=== PATIENT | male | born 1990 ===

== ENCOUNTER 2017-09-08 03:21 | Emergency (ER) | payer OTHER ==
[2017-09-08 03:37] VITALS: BP 108/73; PULSE 96; RESP 18; TEMP 97.7; O2SAT 97
[2017-09-08] MEDS ORDERED: Tetanus/Diphtheria Toxoids 0.5 ml Syringe IM ONE ×2 (03:54→04:06)
--- NOTE | 2017-09-08 03:58 | C.PDOC ---
History Of Present Illness 27 year old male presents to the ED for evaluation of a laceration sustained while at work today. Patient reports that while he was cutting some cables he accidentally cut his left middle finger. Patient denies weakness, numbness. Time Seen by Provider: 09/08/17 03:41 Chief Complaint (Nursing): Abnormal Skin Integrity History Per: Patient History/Exam Limitations: no limitations Onset/Duration Of Symptoms: Hrs Current Symptoms Are (Timing): Still Present Location Of Injury: Left: Hand (3rd finger) Quality Of Symptoms: Painful Recent travel outside of the [place]: No Additional History Per: Patient Past Medical History Reviewed: Historical Data, Nursing Documentation, Vital Signs Vital Signs: Last Vital Signs Temp 97.7 F 09/08/17 03:27 Pulse 96 H 09/08/17 03:27 Resp 18 09/08/17 03:27 BP 108/73 09/08/17 03:27 Pulse Ox 97 09/08/17 04:05 - Medical History PMH: No Chronic Diseases Surgical History: No Surg Hx Family History: States: Unknown Family Hx - Social History Hx Alcohol Use: No Hx Substance Use: No - Immunization History Hx Tetanus Toxoid Vaccination: No ("not sure") Hx Influenza Vaccination: Yes Hx Pneumococcal Vaccination: No Review Of Systems Musculoskeletal: Positive for: Hand Pain Skin: Positive for: Other (laceration) Neurological: Negative for: Weakness, Numbness Physical Exam - Physical Exam Appears: Non-toxic, No Acute Distress Skin: Normal Color, Warm, Dry Head: Atraumatic, Normacephalic Eye(s): bilateral: Normal Inspection Extremity: Normal ROM, No Tenderness, Capillary Refill (< 2 seconds), No Swelling, Other (0.5 superficial laceration to left 3rd finger, no active bleeding) Extremity: Bilateral: Normal Color And Temperature Pulses: Left Radial: Normal, Right Radial: Normal Neurological/Psych: Oriented x3, Normal Speech, Normal Motor, Normal Sensation Gait: Steady ED Course And Treatment O2 Sat by Pulse Oximetry: 97 (ON RA) Pulse Ox Interpretation: Normal Progress Note: tetanus immunization given. Laceration - Laceration Repair left 3rd finger Wound Length (In cm): 0.5 Description Of Wound: Linear Wound Cleansed With: Sterile Saline Wound Examination: Irrigated With Saline, No FB With Wound Exploration Wound Closure: Steri Strips (X2), Skin Glue Wound Complexity: Simple Disposition Counseled Patient/Family Regarding: Diagnosis, Need For Followup - Disposition Referrals: Rebecca Noble MD [Medical Doctor] - Disposition: HOME/ ROUTINE Disposition Time: 03:56 Condition: STABLE Additional Instructions: Please follow up with PMD in 2 days for wound check Keep wound dry and clean foe 2 days Return to ER if worse Instructions: Laceration Repair With Glue (DC) Forms: [employer] (Swiss) - Clinical Impression Clinical Impression: Finger laceration - PA / [employer] / Resident Statement MD/DO has reviewed & agrees with the documentation as recorded. - Scribe Statement The provider has reviewed the documentation as recorded by the Scribe Kaveh Medrano All medical record entries made by the Scribe were at my direction and personally dictated by me. I have reviewed the chart and agree that the record accurately reflects my personal performance of the history, physical exam, medical decision making, and the department course for this patient. I have also personally directed, reviewed, and agree with the discharge instructions and disposition.
== END 2017-09-08 04:11 | disposition home or self-care (01) ==
LOC: C.ER 03:21
DX: S61.213A Laceration without foreign body of left middle finger without damage to nail, initial encounter (principal); W45.8XXA Other foreign body or object entering through skin, initial encounter; Y92.89 Other specified places as the place of occurrence of the external cause; Y99.0 Civilian activity done for income or pay